=== PATIENT | female | born 1970 | race Two or more races ===

== ENCOUNTER 2020-07-31 08:40 | Emergency (ER) | payer MEDICAID, SELFPAY ==
[2020-07-31 09:38] VITALS: BP 131/92; PULSE 92; RESP 20; TEMP 36.6; O2SAT 96; BMI 26.6
--- NOTE | 2020-07-31 10:21 | ED.GENADULT ---
HPI - General Adult General Chief complaint: General Medical Stated complaint: facial pain Time Seen by Provider: 07/31/20 09:47 Source: patient Mode of arrival: ambulatory Limitations: no limitations History of Present Illness HPI narrative: 50 yo female here with sinus pain, headache, nasal congestion x 4 days Onset (ago): day(s) (4 days) Location: head Radiation: non-radiation Severity: mild Quality: constant Pain Consistency: constant Relieving factors: none Exacerbating factors: none Associated symptoms: fever/chills (subjective fevers, chills ) and headaches Treatments prior to arrival: none Related Data Previous Rx's Medication Instructions Recorded amoxicillin-pot clavulanate 1 tab PO BID 7 Days #14 tab 07/31/20 [Augmentin] cetirizine 10 mg PO DAILY #30 tab 07/31/20 Allergies Allergy/AdvReac Type Severity Reaction Status Date / Time egg [EGGS] Allergy Intermediate Rash Verified 07/31/20 10:04 ibuprofen [Ibuprofen] Allergy Unknown RASH Verified 07/31/20 10:04 naproxen [Naproxen] Allergy Unknown RASH Verified 07/31/20 10:04 tramadol [Tramadol] Allergy Unknown RASH Verified 07/31/20 10:04 Review of Systems Review of Systems: Yes all other systems are reviewed and are negative Constitutional: Constitutional: Reports chills, Reports fever(s) (subjective ), Reports headache(s) and Denies weakness Eyes: Eyes: Denies change in vision and Denies loss of vision ENT: Denies dizziness, Reports headache(s), Reports nasal congestion, Reports sinus pain and Reports sinus pressure Cardiovascular: Cardiovascular: Denies chest pain, Denies leg edema and Denies dyspnea Respiratory: Respiratory: Denies cough and Denies dyspnea Gastrointestinal: Gastrointestinal: Denies abdominal pain, Denies diarrhea, Denies nausea and Denies vomiting Genitourinary: Genitourinary: Reports no additional female genitourinary complaints Musculoskeletal: Musculoskeletal: Denies arthralgias, Denies joint swelling, Denies numbness and Denies tingling Integumentary/Breasts: Skin/Breast: Denies rash Neurologic: Reports Abnormal speech present, Denies dizziness, Reports headache(s), Denies focal weakness, Denies loss of vision, Denies numbness, Denies Other visual disturbances, Denies tingling and Denies weakness [facility] Past Medical History Attestation statement: The following information was validated with the patient. Source: obtained from family Medical History Kidney stones Migraine Social History Social History Alcohol intake: never Smoking Status: Never smoker Use of substances other than those prescribed or required for medical reasons: No Advance Directives: No Advance Directives Information Provided: No Physical Exam Vital Signs and I&O and Narrative: Vital Signs and I&O: Vital Signs Temp 98 F 07/31/20 09:38 Pulse 92 07/31/20 09:38 Resp 20 07/31/20 09:38 BP 131/92 H 07/31/20 09:38 Pulse Ox 96 07/31/20 09:38 Intake & Output 07/30/20 07/31/20 07/31/20 18:59 06:59 18:59 Weight 59.874 kg Body Mass Index 26.6 Const: General: cooperative, comfortable, no acute distress and well developed Orientation/consciousness: patient oriented x3 Limitations: no limitations HENMT: Head: Yes normal to inspection Ears: hearing grossly normal bilaterally, normal mastoids bilaterally, no periauricular adenopathy and TM abnormal (bilateral bulging) wth effusion; not erythematous General nose exam: Normal external nose present Face and sinus: No sinuses nontender (frontal and maxillary sinuses tender), Yes sinus tenderness and Yes other (bilateral nasal turbinate erythema) Mouth: Normal oral and palatal mucosa present Throat: Yes posterior oropharynx normal Eyes: General: appearance normal, both eyes and all related structures Pupils: Equal, round and reactive pupils present Neck: Neck: Yes normal visual inspection Lymphatic: lymphadenopathy noted Chest: Chest palpation & inspection: normal inspection of the chest Resp: Effort & Inspection: normal respiratory effort Auscultation: clear to auscultation bilaterally Cardio: Palpation: normal PMI Rate: regular rate Rhythm: regular rhythm Heart sounds: S1 normal heart sound present Peripheral pulses: Peripheral pulses 2+ throughout GI: Inspection: Yes normal to inspection Palpation (GI): Soft to palpation and nontender Auscultation: normal bowel sounds Back/Spine/Pelvis: Thoracic/Lumbar Spine: thoracic and lumbar spine normal to inspection Skin: General skin exam: no rashes or lesions noted Neuro: General: patient oriented x3 Cranial nerves: Yes Equal, round and reactive pupils present Cognition (Neuro): normal cognition Speech: Abnormal speech present Gait exam (Neuro): Normal gait present Motor exam (neuro): 5/5 motor strength present throughout Sensory Exam: Normal double simultaneous stimulation for sensation Extrem: General: Yes normal to inspection Medical Decision Making MDM Narrative Medical decision making narrative: Exam c/w with sinusitis. Will treat with augmentin x 7 days. Reviewed worrisome signs/symptoms with patient and when to return to ED. Comfortable with discharge home. Discharge Plan Discharge Clinical Impression: Sinusitis Qualifiers: Sinusitis location: maxillary Chronicity: acute Recurrence: non-recurrent Qualified Code(s): J01.00 - Acute maxillary sinusitis, unspecified Patient Disposition: Home, Self-Care Instructions: Sinusitis (ED) Additional Instructions: Warm, moist air as discussed Continue nasal spray Prescriptions: New amoxicillin-pot clavulanate [Augmentin] 875-125 mg tablet 1 tab PO BID 7 Days Qty: 14 RF: 0 cetirizine 10 mg tablet 10 mg PO DAILY Qty: 30 RF: 0 Referrals: [facility] [Primary Care Provider] - 5 days (if no better) Stand Alone Forms: Work/School Release Interventions: ED Discharge Assessment Last Done: 07/31/20 10:47 Discharge Date/Time: 07/31/20 10:49 Print Language: Hungarian
== END 2020-07-31 10:49 | disposition home or self-care (01) ==
PROVIDERS: Emergency Provider Internal Medicine
DX: J01.00 Acute maxillary sinusitis, unspecified (principal)
CPT/HCPCS: 99283; 99284

== ENCOUNTER → 2021-09-13 14:52 | Outpatient (BNVA) | payer MEDICAID, SELFPAY | PROVIDERS: PCP Internal Medicine; Visit Provider Orthopaedic Surgery | DX: M24.811 Other specific joint derangements of right shoulder, not elsewhere classified (principal); Z88.8 Allergy status to other drugs, medicaments and biological substances; Z88.6 Allergy status to analgesic agent; Z91.012 Allergy to eggs | CPT/HCPCS: 99202 ==

== ENCOUNTER 2021-10-29 16:13 | Outpatient (REF) | payer MEDICAID, SELFPAY ==
--- NOTE | ~2021-10-29 | MR_ITS ---
EXAMINATION: MR SHOULDER WITHOUT CONTRAST, RIGHT CLINICAL INFORMATION: Right shoulder pain down to arm. Finger numbness. Decreased range of motion. COMPARISON: Radiographs dated 02/05/2018. TECHNIQUE: MRI of the shoulder without contrast was performed on a high-field scanner. FINDINGS: ROTATOR CUFF: At the insertion of the junctional fibers of the supraspinatus and infraspinatus tendons, there is an insertional tear of the supraspinatus tendon and anterior fibers of the infraspinatus tendon measuring 1.2 cm AP. This tear involves the majority of the tendon thickness (1 cm, image 6/18 of series 5) with probable punctate focal disruption of both the articular and bursal laminae. The torn margin of the tendon is retracted by 5 mm. There is underlying cortical irregularity, marrow edema signal, and subcortical cystic change at the greater tuberosity. Subscapularis and teres minor are normal. No muscle atrophy or fatty infiltration. BICEPS: Normal. CORACOACROMIAL ARCH: The undersurface of the acromion is curved with small lateral subacromial spur. Small to moderate volume of fluid in the subacromial-subdeltoid bursa. Mild acromioclavicular osteoarthritis. LABRUM/CAPSULE: Mild fraying is noted at the glenoid labrum posterosuperiorly without a discrete tear. Joint capsule is normal. GLENOHUMERAL JOINT/MARROW: As noted above, there is subcortical cystic change and marrow edema at the greater tuberosity deep to the rotator cuff insertion. No fractures. Marrow signal is otherwise normal. Articular cartilage appears relatively well preserved at the glenohumeral joint. No significant joint effusion. MR/MR shoulder RT wo con IMPRESSION: 1. A 1.2 cm insertional tear at the junctional fibers of the supraspinatus and infraspinatus tendons with probable focal full-thickness perforation and minimal tendon retraction (5 mm). No muscle atrophy. 2. [id number] subacromial-subdeltoid bursitis. Small lateral subacromial spur and mild acromioclavicular osteoarthritis. 3. Glenohumeral joint and labrum are relatively well preserved.
== END 2021-10-29 16:14 | disposition home or self-care (01) ==
LOC: HO.MRI 16:13
PROVIDERS: Visit Provider Orthopaedic Surgery
DX: M24.811 Other specific joint derangements of right shoulder, not elsewhere classified (principal)
CPT/HCPCS: 73221

== ENCOUNTER → 2021-11-08 13:17 | Outpatient (BNVA) | payer MEDICAID, SELFPAY | PROVIDERS: PCP Internal Medicine; Visit Provider Orthopaedic Surgery | DX: M75.101 Unspecified rotator cuff tear or rupture of right shoulder, not specified as traumatic (principal) | CPT/HCPCS: 99212 ==

== ENCOUNTER → 2021-12-28 11:17 | Outpatient (BNVA) | payer MEDICAID, SELFPAY | PROVIDERS: Visit Provider Physician Assistant | DX: M75.101 Unspecified rotator cuff tear or rupture of right shoulder, not specified as traumatic (principal) | CPT/HCPCS: 99212 ==

== ENCOUNTER 2022-01-02 07:51 | Day surgery (SDC) | payer MEDICAID, SELFPAY ==
[2021-12-27 15:06] VITALS: BMI 28.0
[2022-01-02] VITALS (12 sets, daily range): BP systolic 106–126; BP diastolic 77–84; PULSE 75–107; RESP 11–19; TEMP 36.1–36.7; O2SAT 95–98
[2022-01-02] MEDS: Scopolamine 1.5 MG PATCH.TD.3 EAR-BEHIND (08:21)
--- NOTE | 2022-01-02 08:25 | P.CONAN_ITS ---
HPI - Anesthesia Eval Consult details Narrative: Right shoulder pain PMFSH Active Problems Active Problems: All Active Problems (Updated 12/27/21 @ 15:05 by Vonnie Mahmood RN) Internal derangement of right knee (Acute) Internal derangement of right shoulder (Acute) Rotator cuff tear, right (Acute) Past Medical History Medical History Anxiety COVID-19 vaccine series completed History of postoperative nausea and vomiting Kidney stones Migraine Family History Family history of problems with anesthesia: No Surgical History Surgical History Hx of cholecystectomy Hx of cystoscopy Hx of cystoscopy Hx of hemorrhoidectomy Hx of lithotripsy History of Problems with Anesthesia: No Social History Social History Are you a primary daycare teacher to a significant other at home: No Do you presently have visiting nurse or other home services: No Alcohol intake: never Patient Tobacco Use Status: Never used Tobacco Use of substances other than those prescribed or required for medical reasons: No Have you been hit, kicked, punched, or otherwise hurt by someone within the past year? If so, by whom?: No Are you DNR?: No Advance Directives: No Advance Directives Information Provided: Yes (brochure mailed) Advance Directives on File: No Recently lost weight without trying: No Eating poorly because of decreased appetite: No Nutrition Risks: No Nutritional Risk Patient : No FDLMP: 12/11/21 (irregular) : No Poor oral hygiene: No Meds Allergies Allergy/AdvReac Type Severity Reaction Status Date / Time egg [EGGS] Allergy Intermediate Rash Verified 12/28/21 11:31 ibuprofen [Ibuprofen] Allergy Intermediate RASH Verified 12/28/21 11:31 Influenza Virus Vaccines Allergy Intermediate Rash Verified 12/28/21 11:31 naproxen [Naproxen] Allergy Intermediate RASH Verified 12/28/21 11:31 tramadol [Tramadol] Allergy Intermediate RASH Verified 12/28/21 11:31 Active Medications: Current Medications Lactated Ringer's (Lr) 1,000 mls @ 50 mls/hr IVCONT .Q20H SUSSY Acetaminophen (Ofirmev) 1,000 mg in 100 mls @ 400 mls/hr IV PREOP ONE Stop: 01/02/22 08:37 Home Medications Medication Instructions Recorded Confirmed Last Taken Type amitriptyline 25 mg tablet 1 tab PO BEDTIME 12/27/21 12/27/21 Unknown History aspirin 81 mg tablet,delayed 1 tab PO DAILY 12/27/21 12/27/21 Unknown History release cholecalciferol (vitamin D3) 50 1 cap PO DAILY 12/27/21 12/27/21 Unknown History mcg (2,000 unit) capsule conjugated estrogens 0.625 mg/gram 1 g VAGINAL 2XW 12/27/21 12/27/21 Unknown History vaginal cream (Premarin) cyanocobalamin (vitamin B-12) 1 tab PO DAILY 12/27/21 12/27/21 Unknown History 2,000 mcg tablet,extended release cyclobenzaprine 5 mg tablet 1 tab PO DAILY PRN 12/27/21 12/27/21 Unknown History divalproex 500 mg tablet,delayed 1 tab PO BID 12/27/21 12/27/21 Unknown History release fluticasone propionate 50 2 spray INTRANASAL DAILY 12/27/21 12/27/21 Unknown History mcg/actuation nasal spray,suspension levocetirizine 5 mg tablet 1 tab PO QPM 12/27/21 12/27/21 Unknown History loratadine 10 mg tablet 1 tab PO DAILY PRN 12/27/21 12/27/21 Unknown History oxycodone-acetaminophen 5 mg-325 1 tab PO Q6H PRN 12/27/21 12/27/21 Unknown History mg tablet pantoprazole 20 mg tablet,delayed 1 tab PO DAILY 12/27/21 12/27/21 Unknown History release sumatriptan succinate 50 mg tablet 1 - 2 tab PO DAILY 12/27/21 12/27/21 Unknown History Exam Exam Date and Time: January 02, 2022 0825 Height,Weight and Vital Signs: Height 4 ft 11 in Weight 63.049 kg Last Vital Signs Temp 98.0 F 01/02/22 07:53 Pulse 91 01/02/22 07:53 Resp 16 01/02/22 07:53 BP 113/83 01/02/22 07:53 Pulse Ox 98 01/02/22 07:53 Airway Mallampati Class: II TM Dist: >3cm Neck ROM: Full Loose/Missing/Broken Teeth: No Heart: [id number] Lungs: cta b/l Assessment and Plan Assessment Anesthesia Assessment: Anesthesia Plan Discussed and Chart Reviewed Final Anesthetic Review Family History of Problems with Anesthesia: No History of Problems with Anesthesia: No NPO: Yes ASA Class: II Final Preanesthetic Review: No Changes in Pt Med Stat, Meds/Allgs Chart Reviewed, Consent Obtained/Reviewed and Anes Risks/Benef Reviewed Patient Risk: Intermediate Procedure Risk: Intermediate Assessment/Block/Sedation in SS: Assess/Block/Sedation-SS Anesthetic Plan Anesthetic Plan: GA, Regional Block and Agree w/ Assess. and Plan Disposition: Standard PACU
--- NOTE | 2022-01-02 09:18 | MHC.SHP ---
Pre-Procedural Eval Section A Date of Service: 01/02/22 The patient is an INPATIENT: No Changes since office visit: No Cold of Flu in the past 2 weeks, No New Medical Problems, No Changes in Medication and No Patient answered all questions The History & Physical has been completed within 30 days and I have reviewed it.: Yes Section B Chief Complaint: rotator tear Allergies: Allergies Allergy/AdvReac Type Severity Reaction Status Date / Time egg [EGGS] Allergy Intermediate Rash Verified 12/28/21 11:31 ibuprofen [Ibuprofen] Allergy Intermediate RASH Verified 12/28/21 11:31 Influenza Virus Vaccines Allergy Intermediate Rash Verified 12/28/21 11:31 naproxen [Naproxen] Allergy Intermediate RASH Verified 12/28/21 11:31 tramadol [Tramadol] Allergy Intermediate RASH Verified 12/28/21 11:31 Plan I have reviewed the history and physical and performed a pertinent physical examination on my patient. No changes have occurred unless specified.
--- NOTE | 2022-01-02 11:32 | P.BOP_ITS ---
Brief Operative Note Date of Service: 01/02/22 Pre-op diagnosis: right RTC tear Post-op diagnosis: same Procedure: Right rotator cuff repair Implants: [employer] Helacoil x 2 and Knotless anchor x2 Surgeon: Darryl Urrutia MD Anesthesia: GETA and regional Was an Sectionizer used for this Procedure?: Yes Sectionizer: Mayra Ware Estimated blood loss (mL): 15 IV fluids (mL): 1,000 Pathology: none sent Condition: stable Disposition: PACU
--- NOTE | 2022-01-02 11:37 | W.PM.OPN ---
Operative Note Operative Note Date of Service: 01/02/22 Narrative: Pre-op diagnosis: right RTC tear Post-op diagnosis: same Procedure: Right rotator cuff repair Implants: [employer] Helacoil x 2 and Knotless anchor x2 Surgeon: Darryl Urrutia MD Anesthesia: GETA and regional Was an Senior Developer used for this Procedure?: Yes Senior Developer: Mayra Ware Estimated blood loss (mL): 15 IV fluids (mL): 1,000 Pathology: none sent Condition: stable Disposition: PACU Procedure in detail: Patient was brought to the operating room and placed the the beach chair position. All bony prominences were well padded and the limb was prepped and draped in standard sterile fashion. A time out was called to identify proper site, proper procedure and proper surgeon. IV antibiotics per weight were administered. I began by making a posterolateral stab incision with a 15 blade. A blunt trochar was placed into the glenohumeral joint and I insufflated the joint with saline and a 30 degree arthroscope was placed. I established an outside- in anterior portal just distal to the biceps tendon. I then began my inspection of the glenohumeral joint. Cartilage surfaces were normal. Gutter was clean. Biceps/labral complex intact. Subscapularis intact. Full thickness undersurface tear of supraspinatus. I then removed the trochar and entered the subacromial space. A direct lateral portal was then established and I performed a bursectomy. The cuff was then examined.There was a crescentic full thickness tear of the entirety of the supraspinatus without retraction. I placed two medial row double loaded anchors adjacent to the humeral haed chondral surface and passed these throughout the cuff and , using a cross-bridge technique brought these to two lateral row knotless anchors. Prior to this I used a oswaldo to debride the bony bed to bleeding bone. I was extremely satisfied with the repair and performed a small subacromial decompression. Once I was satisfied with the repair final images were captured and I removed all instrumentation. Portals were closed with nylon. Patient was placed in an abduction sling, extubated and brought to the recovery room in stable condition. There were no known complications.
[2022-01-02] MEDS: fentaNYL citrate/PF 100 MCG/2 ML VIAL 50 MCG IVPUSH ×2 (11:54→12:11)
[2022-01-02] MEDS: oxyCODONE HCl Immed Release 5 MG TABLET 10 MG PO (11:54)
== END 2022-01-02 13:51 | disposition home or self-care (01) ==
PROVIDERS: Visit Provider Orthopaedic Surgery
PROC: (CPT 29827; principal; 2022-01-02 09:50)
DX: M75.101 Unspecified rotator cuff tear or rupture of right shoulder, not specified as traumatic (principal); F41.1 Generalized anxiety disorder; G43.909 Migraine, unspecified, not intractable, without status migrainosus; Z87.442 Personal history of urinary calculi; Z88.8 Allergy status to other drugs, medicaments and biological substances
CPT/HCPCS: 29827; 29826; C1713; J0131; J0171; J0690; J1100; J1200; J2250; J2405; J3010

== ENCOUNTER → 2022-01-07 09:48 | Outpatient (BNVA) | payer MEDICAID, SELFPAY | PROVIDERS: PCP Internal Medicine; Visit Provider Physician Assistant | DX: Z98.890 Other specified postprocedural states (principal) | CPT/HCPCS: 99212 ==

== ENCOUNTER → 2022-02-04 09:11 | Outpatient (BNVA) | payer MEDICAID, SELFPAY | PROVIDERS: PCP Internal Medicine; Visit Provider Physician Assistant | DX: Z47.89 Encounter for other orthopedic aftercare (principal); Z98.890 Other specified postprocedural states | CPT/HCPCS: 99212 ==

== ENCOUNTER 2022-02-14 08:22 | Outpatient (REF) | payer MEDICAID, SELFPAY ==
--- NOTE | ~2022-02-14 | XR_ITS ---
EXAMINATION: XR SHOULDER, RIGHT CLINICAL INFORMATION: Pain COMPARISON: Previous x-ray January 2018 TECHNIQUE: Three views of the right shoulder. FINDINGS: There are new surgical tacks or anchors in the humeral head. Bone alignment is normal. No fracture or dislocation is seen. The joint spaces are normal. Soft tissues are normal. XR/XR shoulder RT min 2V IMPRESSION: New postsurgical changes with tacks or anchors in the humeral head.
== END 2022-02-14 08:23 | disposition home or self-care (01) ==
LOC: HO.HOSX 08:22
PROVIDERS: Visit Provider Physician Assistant
DX: Z98.890 Other specified postprocedural states (principal)
CPT/HCPCS: 73030; 99212

== ENCOUNTER → 2022-03-04 12:47 | Outpatient (BNVA) | payer MEDICAID, SELFPAY | PROVIDERS: PCP Internal Medicine; Visit Provider Physician Assistant | DX: Z98.890 Other specified postprocedural states (principal) | CPT/HCPCS: 99212 ==

== ENCOUNTER 2022-05-02 15:00 | Outpatient (RCR) | payer MEDICAID, SELFPAY | END 2022-05-30 08:11 | disposition home or self-care (01) | LOC: HO.PT 15:00 | PROVIDERS: PCP Internal Medicine; Visit Provider Physician Assistant | DX: Z98.890 Other specified postprocedural states (principal) | CPT/HCPCS: 97014; 97110; 97112; 97140; 97161 ==

== ENCOUNTER → 2022-07-10 14:53 | Outpatient (REF) | payer MEDICAID, SELFPAY ==
--- NOTE | 2022-07-10 14:56 | CA_ITS ---
Transthoracic Echocardiogram Patient (Last, First, Middle): Camila Moreira, Gender: Female Date of : 1970 Age: 52 Procedure Date: 07/10/2022 Procedure Type: Transthoracic Echocardiogram Location: OP Height: 149.86 cm Weight: 61.24 kg BSA: 1.56 m2 Heart Rate: bpm BP: 120 / 80 mmHg Supplier Quality Specialist: IGOR Referring MD: Elo Frederick Community Engagement Representative: Kenneth Urbina MD Symptoms: R00.2 PALPITATIONS R07.89 CHEST PAIN Study Quality: Technically Difficult ECG Rhythm: Sinus Conclusions: - 1. Technically limited study 2. Normal LV systolic function with impaired relaxation filling pattern 3. Cardiac valves not well visualized with normal cardiac valvular Doppler Findings Left Ventricle Normal left ventricular size, thickness, and systolic function. The visually estimated ejection fraction is between 60-65%. Spectral Doppler is indicative of an impaired relaxation filling pattern. Right Ventricle The right ventricle was not well visualized. There is normal right ventricular systolic function. Atria The left atrium was not well visualized. Interatrial shunt cannot be excluded. The right atrium was not well visualized. Aortic Valve The aortic valve was not well visualized. There is no aortic valve stenosis. There is no aortic valve regurgitation. Mitral Valve Likely normal mitral valve structure and function. There is trace mitral valve regurgitation. There is no mitral valve stenosis. Pulmonic Valve The pulmonic valve was not well visualized. Tricuspid Valve The tricuspid valve was not well visualized. Tricuspid regurgitation envelope is inadequate for calculation of right ventricular systolic pressure. Great Vessels All visible segments of the aorta are normal in size. The pulmonary artery was not well visualized. Venous The inferior vena cava was not well visualized. Pericardium/Pleural The pericardium was not well visualized. Prior Study Comparison No prior study available for comparison. Recommendations, Care & Conclusions Recommend contrast in the future to improve endocardial definition. Measurements 2D Linear Measurements IVSd: 0.92 0.6-0.9/0.6-1.0 cm LVIDd: 3.61 3.9-5.3/4.2-5.9 cm LVIDd Index: 2.31 2.4-3.2/2.2-3.1 cm/m2 LVIDs: 2.56 2.0-3.6 cm LVPWd: 1.02 0.7-1.1 cm LA Diam: 3.10 2.7-3.8/3.0-4.0 cm LAIDs Index: 1.99 1.5-2.3 cm/m2 LV Mass: 128.67 67-162/88-224 g LV Mass Index: 82.48 43-95/49-115 g/m2 LVOT Diam: 1.80 3.0+(-)1.3 cm Mitral Valve MV Pk E: 0.46 MV PK A: 0.62 MV Decel Time: 194.00 E/A: 0.70 E'Lateral: 6.66 E'Medial: 6.66 E/E' Med: 7.00 E/E' Lat: 7.00 PHT: 57.00 MVA PHT: 3.86 Decel Mineral: 2.38 Aortic Valve AoV Pk Wesly: 1.16 AoV Mn Wesly: 0.85 AoV VTI: 0.24 AoV Pk Grad: 5.00 Aov Mn Grad: 3.00 ROCIO Cont.VTI: 1.64 LVOT LVOT Pk Wesly: 0.79 LVOT Mn Wesly: 0.55 LVOT VTI: 0.16 LVOT Pk Grad: 3.00 LVOT Mn Grad: 1.00 LVOT Diam: 1.80 LVOT Area: 2.54 Diastolic Function MV Pk E: 0.46 MV Pk A: 0.62 E/A: 0.70 E'Medial: 6.66 E/E' Med: 7.00 E' Laterial: 6.66 E/E' Lat: 7.00 Right Ventricle TAPSE (mm): 16.50 TVS' Wesly: 9.64 Tricuspid Valve RA Press: 3.00 Great Vessels Aorta Sinus of Valsalva: 3.00 2.0-3.5 cm Ao Asc: 2.50 2.1-3.4 cm Pulmonary Valve PV Pk Wesly: 0.62 Peak PV Grad: 2.00 Updated in Other Vendor System with Status of Final Kenneth Urbina MD electronically signed on 07/10/2022 6:00:55 PM with status of Final
== END ==
LOC: HO.CARD 14:53
PROVIDERS: Visit Provider Nurse Practitioner
DX: R07.89 Other chest pain (principal); R00.2 Palpitations
CPT/HCPCS: 93306

== ENCOUNTER → 2022-07-19 14:23 | Outpatient (BNVA) | payer MEDICAID, SELFPAY | PROVIDERS: PCP Internal Medicine; Visit Provider Physician Assistant | DX: Z98.890 Other specified postprocedural states (principal) | CPT/HCPCS: 99212 ==

== ENCOUNTER 2022-08-01 14:52 | Outpatient (REF) | payer MEDICAID, SELFPAY ==
--- NOTE | ~2022-08-01 | US_ITS ---
EXAMINATION: US RETROPERITONEAL LIMITED (RENAL ONLY) CLINICAL INFORMATION: Unspecified abdominal pain, history of nephrolithiasis. COMPARISON: Ultrasound retroperitoneal limited (renal only) 07/01/2017 and 11/22/2016. CT abdomen and pelvis without contrast 01/17/2017. X-ray abdomen KUB 11/13/2016. TECHNIQUE: Real-time imaging of the kidneys. FINDINGS: RIGHT KIDNEY: 10.2 x 4.8 x 4.1 cm (SAG x AP x TRV). The kidney is normal in size, contour, and echogenicity. Renal cortical thickness is normal. No focal parenchymal lesions or hydronephrosis. There is an echogenic nonobstructing midpole calculi measuring 0.5 x 0.3 x 0.6 cm. LEFT KIDNEY: 10.9 x 5.5 x 3.8 cm (SAG x AP x TRV). The kidney is normal in size, contour, and echogenicity. Renal cortical thickness is normal. No renal calculi or focal parenchymal lesions. There is mild hydronephrosis. BLADDER: Bilateral ureteral jets are demonstrated. US/US renal BI IMPRESSION: Nonobstructive echogenic calculi midpole right kidney. Mild left hydronephrosis. Bilateral ureteral jets are visualized in the bladder
== END 2022-08-01 14:53 | disposition home or self-care (01) ==
LOC: HO.US 14:52
PROVIDERS: PCP Emergency Medicine; Visit Provider Emergency Medicine
DX: R10.9 Unspecified abdominal pain (principal)
CPT/HCPCS: 76775

== ENCOUNTER 2022-08-02 21:07 | Emergency (ER) | payer MEDICAID, SELFPAY ==
--- NOTE | ~2022-08-02 | CT_ITS ---
EXAMINATION: CT ABDOMEN AND PELVIS WITH CONTRAST CLINICAL INFORMATION: Right upper quadrant pain COMPARISON: 01/17/2017 TECHNIQUE: Multidetector volumetric images were obtained from the superior aspect of the liver through the pubic symphysis following administration 85 mL of Omnipaque 350 intravenous contrast. Sagittal and coronal reformatted images were obtained on the technologist's workstation. Oral contrast: No
[2022-08-02 21:17] VITALS: BP 146/96; PULSE 120; RESP 18; TEMP 36.6; O2SAT 98; BMI 29.2
[2022-08-02 22:02] LABS: MANUAL DIFF FLAG NO
[2022-08-02 22:19] LABS: Basophils Percent Auto 0.3 % (0-2); Eosinophils Absolute Auto 0.1 X10*3/uL (0.0-0.4); Eosinophils Percent Auto 1.4 % (0-4); Hemoglobin 11.8 g/dl (12.0-16.0); Imm Gran Abs Auto 0.01 X10*3/uL (0.00-0.03); Imm Gran Pct Auto 0.1 % (0.0-0.4); Lymphocytes Absolute Auto 2.3 X10*3/uL (1.2-4.9); Lymphocytes Percent Auto 31.9 % (20-40); Mean Corpuscular HGB Conc 32.8 g/dl (31.0-35.0); Mean Corpuscular Hemoglobin 31.1 pg (27.0-33.0); Mean Corpuscular Volume 94.7 fL (80.0-98.0); Mean Platelet Volume 10.3 fL (9.4-12.3); Monocytes Absolute Auto 0.5 X10*3/uL (0.1-1.2); Monocytes Percent Auto 7.4 % (2-11); Neutrophils Absolute Auto 4.2 x10*3/uL (2.0-8.3); Neutrophils Percent Auto 58.9 % (45-73); Platelet Count 254 X10*3/uL (160-400); White Blood Count 7.2 X10*3/uL (4.8-10.8)
[2022-08-02 22:27] LABS: Troponin-I High Sensitivity < 3.5 ng/L (<3.5-17.0)
[2022-08-02 22:36] LABS: Alanine Aminotransferase 90 U/L (0-31); Albumin Level 4.6 g/dL (3.5-5.0); Alkaline Phosphatase 113 U/L (39-117); Anion Gap 15 (12-20); Aspartate Amino Transferase 53 U/L (5-31); Bilirubin Total 0.2 mg/dL (0.0-1.0); Blood Urea Nitrogen 11 mg/dL (9-16); Calcium 9.6 mg/dL (8.4-10.2); Carbon Dioxide 27 mmol/L (22-29); Chloride 104 mmol/L (96-108); Creatinine Clr Calc Pharmacy 59.6; Estimated Glomerular Filt Rate > 60; Glucose Random 102 mg/dL (60-115); Potassium 4.4 mmol/L (3.3-5.1); Sodium 142 mmol/L (135-145); Total Protein 8.1 g/dL (6.5-8.0)
--- NOTE | 2022-08-03 00:24 | ED.GENADULT ---
HPI - General Adult General Chief complaint: Allergic Reaction Stated complaint: was given med, having adverse effects Time Seen by Provider: 08/03/22 00:23 Source: patient Mode of arrival: ambulatory Limitations: no limitations History of Present Illness HPI narrative: Is a 52-year-old female presenting to the emergency department complaints of right upper quadrant pain x3 days, patient tells me she was evaluated at the [facility] where she was told that she might have kidney stones. She tells me that they did no imaging but just suspected that she had kidney stones. She tells me they did not check her urine there nor did they do any laboratory studies. Patient got discharged with tamsulosin which she reports she is having adverse effects 2 such as palpitations, intermittent headaches and chest discomfort. She tells me if she does not take the medication she is okay. Patient tells me that she is having constant right upper quadrant pain that fluctuates in intensity described as a sharp pain, unable to tell me what makes it better or worse. Denies any changes in urination. At this time tells me she is having palpitations however no shortness of breath. Denies fevers, chills, changes in bowel habits, changes in urination, weakness, vision changes, weakness. Related Data Home Medications Medication Instructions Recorded Confirmed amitriptyline 25 mg tablet 1 tab PO BEDTIME 12/27/21 12/27/21 aspirin 81 mg tablet,delayed 1 tab PO DAILY 12/27/21 12/27/21 release cholecalciferol (vitamin D3) 50 1 cap PO DAILY 12/27/21 12/27/21 mcg (2,000 unit) capsule conjugated estrogens 0.625 mg/gram 1 g vaginal 2XW 12/27/21 12/27/21 vaginal cream (Premarin) cyanocobalamin (vitamin B-12) 1 tab PO DAILY 12/27/21 12/27/21 2,000 mcg tablet,extended release cyclobenzaprine 5 mg tablet 1 tab PO DAILY PRN Muscle Spasm 12/27/21 12/27/21 divalproex 500 mg tablet,delayed 1 tab PO BID 12/27/21 12/27/21 release fluticasone propionate 50 2 spray intranasal DAILY 12/27/21 12/27/21 mcg/actuation nasal spray,suspension levocetirizine 5 mg tablet 1 tab PO QPM 12/27/21 12/27/21 loratadine 10 mg tablet 1 tab PO DAILY PRN congestion 12/27/21 12/27/21 oxycodone-acetaminophen 5 mg-325 1 tab PO Q6H PRN Pain 12/27/21 12/27/21 mg tablet pantoprazole 20 mg tablet,delayed 1 tab PO DAILY 12/27/21 12/27/21 release sumatriptan succinate 50 mg tablet 1 - 2 tab PO DAILY migraine 12/27/21 12/27/21 Previous Rx's Medication Instructions Recorded scopolamine base 1 mg over 3 days 1 patch transdermal Q72H PRN 12/31/21 transdermal patch (Transderm-Scop) nausea and vomiting #4 ea oxycodone 10 mg tablet,crush 10 mg PO Q12H pain 3 days #6 tabs 01/02/22 resistant,extended release 12 hr (OxyContin) oxycodone-acetaminophen 5 mg-325 1 tab PO Q8H PRN pain (scale score 01/24/22 mg tablet (Percocet) 4-6) 7 days #21 tabs lidocaine 5 % topical patch 2 patch topical DAILY #30 patches 07/30/22 (Lidoderm) Allergies Allergy/AdvReac Type Severity Reaction Status Date / Time egg [EGGS] Allergy Intermediate Rash Verified 07/19/22 14:42 ibuprofen [Ibuprofen] Allergy Intermediate RASH Verified 07/19/22 14:42 Influenza Virus Vaccines Allergy Intermediate Rash Verified 07/19/22 14:42 naproxen [Naproxen] Allergy Intermediate RASH Verified 07/19/22 14:42 tramadol [Tramadol] Allergy Intermediate RASH Verified 07/19/22 14:42 Review of Systems Review of Systems: Constitutional : No Weight loss, No Fever, No Chills, No Fatigue, No Malaise ENT/Mouth : No sore throat, No Rhinorrhea Eyes: No Eye Pain, No Swelling, No Redness Cardiovascular : No Chest Pain, No SOB, No Dyspnea on Exertion, No Orthopnea, No Edema, No Palpitations Respiratory : No Cough, No Sputum, No Wheezing Gastrointestinal : No Nausea, No Vomiting, No Diarrhea, No Constipation, No abdominal Pain, No Hematochezia, No Melena Genitourinary : No Dysuria, No Urinary Frequency, No Hematuria, Musculoskeletal : No joint pain, No Myalgias, No Joint Swelling Skin : No Skin Lesions, No rash Neuro : No Weakness, No Numbness, No Dizziness, No Headache Psych : No Anxiety/Panic, No Depression All other systems reviewed and are negative Yes all other systems are reviewed and are negative [facility] Past Medical History Attestation statement: The following information was validated with the patient. Source: old records reviewed and nursing notes reviewed Medical History Anxiety COVID-19 vaccine series completed History of postoperative nausea and vomiting Kidney stones Migraine Surgical History Hx of cholecystectomy Hx of cystoscopy Hx of cystoscopy Hx of hemorrhoidectomy Hx of lithotripsy Social History Social History Are you a primary healthcare or medical to a significant other at home: No Do you presently have visiting nurse or other home services: No Alcohol intake: never Patient Tobacco Use Status: Never used Tobacco Advance Directives: No Advance Directives Information Provided: No Physical Exam ED Vital Signs: Vital Signs - 24 hr 08/02/22 21:17 Temperature 97.8 F Pulse Rate 120 H Respiratory Rate 18 Blood Pressure 146/96 H Pulse Oximetry 98 Oxygen Delivery Method Room Air BMI result Body Mass Index 29.2 Patient noted to be slightly tachycardic however appears anxious Appearance: Alert.? Oriented X3.? No acute distress.? Head: Normocephalic, atraumatic, no step-offs or deformities Eyes: Pupils equal, round and reactive to light.? Extraocular movements intact CVS: Normal heart rate and rhythm.? Pulses normal.? Respiratory: No respiratory distress.? Breath sounds normal.? Abdomen: Soft and + tenderness to RUQ + BS.? Skin: Skin warm and dry.? Normal skin color.? Normal skin turgor.? Extremities: No lower extremity edema.? No calf ttp, negative Phil bilaterally. 5/5 strength to bilateral upper and lower extremities Back: No midline tenderness, no C-spine tenderness, full range of motion, no CVA tenderness bilaterally Neuro: Oriented X 3.? No motor deficit.? No sensory deficit. CN 2-12 intact . Normal palqiq-xi-yehx, lxbi-dn-[id number], steady tandem gait with normal coordination. Course Reevaluation(s) Reevaluation #1: CBC appears to be at patient's baseline, chemistry with no acute findings, troponin negative, EKG nonischemic unlikely ACS. Time: 00:25 Reevaluation #2: UA clean. Pending CT of the abdomen and pelvis, chest x-ray, re-evaluation. Sign out to Dr. Keys. Time: 01:30 Medical Decision Making MDM Narrative Medical decision making narrative: 0025 52-year-old female presents to the emergency department complaints of right upper quadrant and with concerns of adverse effects to tamsulosin. Physical examination with right upper quadrant tenderness, normoactive bowel signs, no signs of peritonitis. Fast rate regular rhythm likely sinus tachycardia, lungs clear, neuro exam nonfocal, cerebellar function intact. Vital signs stable however patient is slightly tachycardic she does tell me that this all making her very anxious and appears anxious upon exam. Based off patient history and physical examination low suspicion for ACS, PE. Concerns for possible cholecystitis or cholelithiasis. Other differentials include nephrolithiasis, or musculoskeletal pain. Neuro nonfocal, cerebellar intact, unlikely ICH, stroke, posterior infarct. Plan at this time is basic labs, urine CT of the abdomen and pelvis. Medical Records Medical records reviewed: Yes I reviewed the patient's medical records. Lab Data Lab results reviewed: Yes I reviewed the patient's lab results. Result diagrams: 08/02/22 21:43 08/02/22 21:43 Labs: Lab Results 08/02/22 08/02/22 08/02/22 Range/Units 21:43 21:43 21:43 WBC 7.2 (4.8-10.8) X10*3/uL RBC 3.80 L (4.20-5.50) X10*6/uL Hgb 11.8 L (12.0-16.0) g/dl Hct 36.0 L (37.0-47.0) % MCV 94.7 (80.0-98.0) fL MCH 31.1 (27.0-33.0) pg MCHC 32.8 (31.0-35.0) g/dl RDW 12.0 (11.0-16.0) % Plt Count 254 (160-400) X10*3/uL MPV 10.3 (9.4-12.3) fL Immature Gran % (Auto) 0.1 (0.0-0.4) % Neut % (Auto) 58.9 (45-73) % Lymph % (Auto) 31.9 (20-40) % [place] % (Auto) 7.4 (2-11) % Eos % (Auto) 1.4 (0-4) % Baso % (Auto) 0.3 (0-2) % Lymph # (Auto) 2.3 (1.2-4.9) X10*3/uL [place] # (Auto) 0.5 (0.1-1.2) X10*3/uL Eos # (Auto) 0.1 (0.0-0.4) X10*3/uL Baso # (Auto) 0.0 (0.0-0.2) X10*3/uL Abs Immat Gran (auto) 0.01 (0.00-0.03) X10*3/uL Absolute Neuts (auto) 4.2 (2.0-8.3) x10*3/uL Absolute Nucleated RBC 0.000 (0.0-0.012) X10*3/uL Nucleated RBC % (auto) 0.0 (0.0-0.2) /100WBC Sodium 142 (135-145) mmol/L Potassium 4.4 (3.3-5.1) mmol/L Chloride 104 (96-108) mmol/L Carbon Dioxide 27 (22-29) mmol/L Anion Gap 15 (12-20) BUN 11 (9-16) mg/dL Creatinine 0.93 (0.5-1.4) mg/dL Estim Creat Clear Calc 59.6 Estimated GFR > 60 Random Glucose 102 (60-115) mg/dL Calcium 9.6 (8.4-10.2) mg/dL Total Bilirubin 0.2 (0.0-1.0) mg/dL AST 53 H (5-31) U/L ALT 90 H (0-31) U/L Alkaline Phosphatase 113 (39-117) U/L Troponin I High Sens < 3.5 (<3.5-17.0) ng/L Total Protein 8.1 H (6.5-8.0) g/dL Albumin 4.6 (3.5-5.0) g/dL Urine Color Urine Appearance Urine pH (5.0-9.0) Ur Specific Lincoln (1.005-1.025) Urine Protein (Neg-Trace) mg/dL Urine Glucose (UA) (Negative) mg/dL Urine Ketones (Negative) mg/dL Urine Blood (Negative) Urine Nitrite (Negative) Ur Leukocyte Esterase (Negative) 08/03/22 Range/Units 01:08 WBC (4.8-10.8) X10*3/uL RBC (4.20-5.50) X10*6/uL Hgb (12.0-16.0) g/dl Hct (37.0-47.0) % MCV (80.0-98.0) fL MCH (27.0-33.0) pg MCHC (31.0-35.0) g/dl RDW (11.0-16.0) % Plt Count (160-400) X10*3/uL MPV (9.4-12.3) fL Immature Gran % (Auto) (0.0-0.4) % Neut % (Auto) (45-73) % Lymph % (Auto) (20-40) % Oxford % (Auto) (2-11) % Eos % (Auto) (0-4) % Baso % (Auto) (0-2) % Lymph # (Auto) (1.2-4.9) X10*3/uL Oxford # (Auto) (0.1-1.2) X10*3/uL Eos # (Auto) (0.0-0.4) X10*3/uL Baso # (Auto) (0.0-0.2) X10*3/uL Abs Immat Gran (auto) (0.00-0.03) X10*3/uL Absolute Neuts (auto) (2.0-8.3) x10*3/uL Absolute Nucleated RBC (0.0-0.012) X10*3/uL Nucleated RBC % (auto) (0.0-0.2) /100WBC Sodium (135-145) mmol/L Potassium (3.3-5.1) mmol/L Chloride (96-108) mmol/L Carbon Dioxide (22-29) mmol/L Anion Gap (12-20) BUN (9-16) mg/dL Creatinine (0.5-1.4) mg/dL Estim Creat Clear Calc Estimated GFR Random Glucose (60-115) mg/dL Calcium (8.4-10.2) mg/dL Total Bilirubin (0.0-1.0) mg/dL AST (5-31) U/L ALT (0-31) U/L Alkaline Phosphatase (39-117) U/L Troponin I High Sens (<3.5-17.0) ng/L Total Protein (6.5-8.0) g/dL Albumin (3.5-5.0) g/dL Urine Color Yellow Urine Appearance Clear Urine pH 7.5 (5.0-9.0) Ur Specific Lincoln 1.010 (1.005-1.025) Urine Protein Negative (Neg-Trace) mg/dL Urine Glucose (UA) Negative (Negative) mg/dL Urine Ketones Negative (Negative) mg/dL Urine Blood Negative (Negative) Urine Nitrite Negative (Negative) Ur Leukocyte Esterase Trace H (Negative) ECG Data Attestation: I personally reviewed and interpreted this ECG as follows: Prior ECG tracings: available for review Interpretation: Ventricular rate of 113, [place] normal, QRS normal, QT/QTC normal. EKG with sinus tachycardia and right axis deviation. No significant changes when compared to EKG from January 2015. Critical Care Time Critical Care Time Critical Care Time: No Discharge Plan Discharge Clinical Impression: Abdominal pain, RUQ, Palpitations Patient Disposition: Still a Patient Instructions: Heart Palpitations (ED), Abdominal Pain (ED) Additional Instructions: Take your medications as prescribed. If you were prescribed antibiotics today, it is important that you take your medication to their entirety, do not skip any doses, do not finish them early. Follow-up with your primary care provider this week. Please follow-up with cardiology of palpitations continue, information below you may require a Holter monitor for further evaluation. Return to the emergency department with new or worsening symptoms. Such as fevers, chills, chest pain, shortness of breath, nausea, vomiting, dizziness, headache, vision changes, lethargy In case of emergency call 911 Please stop taking Flomax as it is causing Prescriptions: No Action oxycodone-acetaminophen [Percocet] 5-325 mg tablet 1 tab PO Q8H PRN (Reason: pain (scale score 4-6)) 7 Days Qty: 21 0RF lidocaine [Lidoderm] 5 % adhesive patch,medicated 2 patch topical DAILY Qty: 30 0RF sumatriptan succinate 50 mg tablet 1 - 2 tab PO DAILY divalproex 500 mg tablet,delayed release (DR/EC) 1 tab PO BID aspirin 81 mg tablet,delayed release (DR/EC) 1 tab PO DAILY pantoprazole 20 mg tablet,delayed release (DR/EC) 1 tab PO DAILY oxycodone-acetaminophen 5-325 mg tablet 1 tab PO Q6H PRN (Reason: Pain) amitriptyline 25 mg tablet 1 tab PO BEDTIME Premarin 0.625 mg/gram cream 1 g vaginal 2XW cyanocobalamin (vitamin B-12) 2,000 mcg tablet extended release 1 tab PO DAILY fluticasone propionate 50 mcg/actuation spray,suspension 2 spray intranasal DAILY loratadine 10 mg tablet 1 tab PO DAILY PRN (Reason: congestion) cyclobenzaprine 5 mg tablet 1 tab PO DAILY PRN (Reason: Muscle Spasm) levocetirizine 5 mg tablet 1 tab PO QPM cholecalciferol (vitamin D3) 50 mcg (2,000 unit) capsule 1 cap PO DAILY oxycodone [OxyContin] 10 mg tablet,oral only,ext.rel.12 hr 10 mg PO Q12H 3 Days Qty: 6 0RF scopolamine base [Transderm-Scop] 1 mg over 3 days patch 3 day 1 patch transdermal Q72H PRN (Reason: nausea and vomiting) Qty: 4 0RF Referrals: [facility] [Primary Care Provider] - 2 days Kenneth Urbina MD [Physician] - 2 weeks Stand Alone Forms: Work/School Release
[2022-08-03 01:19] LABS: Appearance Urine Clear; Color Urine Yellow; Glucose Urine UA Negative (Negative); Leukocyte Esterase Urine Trace (Negative); Nitrite Urine Negative (Negative); PH 7.5 (5.0-9.0); UMIC TRIGGER UACC YES; Urine Blood Negative (Negative); Urine Ketones Negative (Negative); Urine Protein Negative (Neg-Trace)
[2022-08-03 01:29] LABS: Bacteria Urine None Seen (None Seen); Hyaline Casts Urine 0-2 /LPF (0-2); WBC Urine 0-5 /HPF (0-5)
[2022-08-03] MEDS: iohexoL 350 MG/ML 100 ML INFUS..BTL IV (01:29)
[2022-08-03 01:40] VITALS: BP 131/68; PULSE 75; RESP 18; O2SAT 96
[2022-08-03] MEDS: Acetaminophen 325 MG TABLET 975 MG PO (02:07)
[2022-08-03] MEDS: predniSONE 20 MG TABLET 60 MG PO (03:20)
[2022-08-03 03:25] VITALS: BP 128/74; PULSE 70; RESP 16; O2SAT 98
== END 2022-08-03 03:26 | disposition home or self-care (01) ==
PROVIDERS: Emergency Medicine; Physician Assistant; Emergency Provider Student in an Organized Health Care Education/Training Program
DX: R00.2 Palpitations (principal); R10.11 Right upper quadrant pain; R00.0 Tachycardia, unspecified; F41.9 Anxiety disorder, unspecified; Z79.899 Other long term (current) drug therapy
CPT/HCPCS: 36415; 71045; 74177; 80053; 81001; 84484; 85025; 93005; 99284; 99285; Q9967

== ENCOUNTER 2023-04-18 13:12 | Outpatient (REF) | payer MEDICAID, SELFPAY | END 2023-04-18 13:13 | disposition home or self-care (01) | LOC: HO.MAMMO 13:12 | PROVIDERS: PCP Registered Nurse; Visit Provider Registered Nurse | DX: Z13.89 Encounter for screening for other disorder (principal) ==

== ENCOUNTER 2023-05-29 11:17 | Outpatient (REF) | payer MEDICAID, SELFPAY ==
[2023-05-29 14:17] LABS: Alanine Aminotransferase 47 U/L (0-31); Albumin Level 4.4 g/dL (3.5-5.0); Alkaline Phosphatase 97 U/L (39-117); Anion Gap 16 (12-20); Aspartate Amino Transferase 29 U/L (5-31); Bilirubin Total 0.6 mg/dL (0.0-1.0); Blood Urea Nitrogen 12 mg/dL (9-16); Calcium 9.7 mg/dL (8.4-10.2); Carbon Dioxide 22 mmol/L (22-29); Chloride 107 mmol/L (96-108); Cholesterol 167 mg/dL; Estimated Glomerular Filt Rate > 60; Glucose Random 101 mg/dL (60-115); HDL Cholesterol 53 mg/dL; LDL Cholesterol Calculated 98 mg/dl; Potassium 4.7 mmol/L (3.3-5.1); Sodium 140 mmol/L (135-145); Total Protein 7.9 g/dL (6.5-8.0); Triglycerides 80 mg/dL
[2023-05-29 14:47] LABS: Valproate 12.5 mcg/mL (50.0-100.0)
[2023-05-30 05:23] LABS: HBS Num1 38.43 mIU/mL (0-7.99); HBc Num1 0.11 S/CO (0.00-0.79); HBsAGNum1 0.36 S/CO (0.00-0.99); HIV AB/AG Nonreactive (Nonreactive); HIV Num 1 0.07 S/CO (0.00-0.99); Hepatitis A Antibody IgM 0.18 Index (0-0.79); Hepatitis B Core Antibody Nonreactive (Nonreactive); Hepatitis B Surface Antigen Negative (Negative); ~HepC Num1 0.08 S/CO (0.00-0.79); ~Hepatitis A Antibody IgM Nonreactive (Nonreactive); ~Hepatitis B Surface Antibody REACTIVE (Nonreactive); ~Hepatitis C Antibody Nonreactive (Nonreactive)
== END 2023-05-29 11:18 | disposition home or self-care (01) ==
LOC: HO.HHCL 11:17
PROVIDERS: Visit Provider Registered Nurse
DX: Z00.00 Encounter for general adult medical examination without abnormal findings (principal); Z11.4 Encounter for screening for human immunodeficiency virus [HIV]; I25.10 Atherosclerotic heart disease of native coronary artery without angina pectoris; G43.909 Migraine, unspecified, not intractable, without status migrainosus
CPT/HCPCS: 36415; 80053; 80061; 80164; 86704; 86706; 86709; 86803; 87340; 87389

== ENCOUNTER 2023-08-20 16:13 | Outpatient (REF) | payer MEDICAID, SELFPAY ==
[2023-08-20 17:59] LABS: TSH reflex Free T4 2.57 uIU/mL (0.32-4.0)
== END 2023-08-20 16:14 | disposition home or self-care (01) ==
LOC: HO.HHCL 16:13
PROVIDERS: Visit Provider Registered Nurse
DX: H53.8 Other visual disturbances (principal)
CPT/HCPCS: 36415; 84443

== ENCOUNTER 2023-11-06 13:47 | Outpatient (REF) | payer MEDICAID, SELFPAY ==
--- NOTE | ~2023-11-06 | US_ITS ---
EXAMINATION: US DIAGNOSTIC ULTRASOUND BREAST, BILATERAL CLINICAL INFORMATION: 53-year-old female with new implants bilaterally 04/2023, complaining of periareolar pain bilaterally. Patient cannot have mammogram within 1 year of receiving new implants COMPARISON: All recent prior imaging done at [facility]. Left breast ultrasound and mammography 05/09/2023, mammography 11/15/2021, TECHNIQUE: Ultrasound both breasts is performed with real-time crowe scale imaging and color Doppler. Attention was given to the periareolar regions in the regions of pain. FINDINGS: RIGHT BREAST: In the 10-11 o'clock periareolar region there is a fatty mixed echogenicity oval mass measuring 0.9 x 0.9 x 1.0 cm, with posterior acoustic shadowing, and no internal color Doppler flow. Borders appear circumscribed. This has a fairly classic appearance of fat necrosis. No additional right breast abnormalities seen in the periareolar region. LEFT BREAST: In the periareolar region of the left breast, spanning the 1-2 o'clock axis, there are 2 discrete abutting edge shadowing masses which are echogenic, with central good through transmission, and no internal color Doppler flow present. These also have fairly classic appearance of 2 foci of abutting fat necrosis. The larger measures 1.1 x 1.0 x 1.4 cm, and the smaller abutting measures 0.7 x 0.6 x 0.6 cm. (Contrast to prior study at [facility] left breast ultrasound 04/09/2023, wire irregular kidney-shaped mass measured up to 3.3 x 2.0 x 1.5 cm). This also have the appearance of fat necrosis and has undergone significant involution and evolution. There are no additional foci of abnormality in the periareolar left breast. US/US breast BI limited mamm only IMPRESSION: Periareolar foci in both breasts have fairly classic appearance of evolving fat necrosis, as described above. On the left, areas are significantly smaller than previously 04/09/2023, reflecting expected evolution and involution of fat necrosis. No suspicious abnormalities are noted in either breast. ASSESSMENT: BI-RADS 2: Benign RECOMMENDATION: Routine annual mammography screening. This patient's information was entered into a reminder system with a target due date for their next mammogram.
== END 2023-11-06 13:48 | disposition home or self-care (01) ==
LOC: HO.MAMMO 13:47
PROVIDERS: PCP Registered Nurse; Visit Provider Registered Nurse
DX: T85.848A Pain due to other internal prosthetic devices, implants and grafts, initial encounter (principal); N64.4 Mastodynia
CPT/HCPCS: 76642

== ENCOUNTER → 2023-11-06 14:30 | Outpatient (BNV) | payer MEDICAID, SELFPAY | PROVIDERS: PCP Registered Nurse; Visit Provider Radiology Diagnostic Radiology | DX: N64.4 Mastodynia (principal) | CPT/HCPCS: 76642 ==

== ENCOUNTER 2023-12-11 14:34 | Outpatient (REF) | payer MEDICAID, SELFPAY ==
--- NOTE | ~2023-12-11 | MR_ITS ---
EXAMINATION: MR BREAST WITHOUT AND WITH CONTRAST, BILATERAL CLINICAL INFORMATION: Abnormal clinical breast exam. Breast pain. Previous implant placement. COMPARISON: None available. Mammography (nondiagnostic monitor review): 04/09/2023. TECHNIQUE: A 1.5 T system and a dedicated breast coil. T1-weighted sequences without fat-saturation were obtained prior to the administration of contrast. Fat-saturated T1 and T2-weighted sequences were also acquired. The patient received 6.5 mL of IV gadolinium-based contrast, Gadavist. Multiple sequential dynamic T1-weighted sequences were obtained through both breasts with fat-saturation. Subtracted images were reviewed. CAD postprocessing with 3-D reconstructions, maximum intensity projections and kinetic analysis was performed by the interpreting radiologist at an independent workstation and reviewed as a portion of this exam. FINDINGS: Amount of Remaining Fibroglandular Signal: There are scattered areas of fibroglandular tissue (ACR BI-RADS breast composition category B).* Background Parenchymal Enhancement: Moderate. Symmetry of Background Enhancement: Symmetric. RIGHT BREAST: There are irregular areas of enhancement scattered throughout the right breast. The larger areas in the superficial upper outer breast are hyperintense without fat saturation and demonstrates peripheral enhancement. There are multiple additional areas of nonmass enhancement. Masses: There are no other suspicious enhancing masses. Non-mass Enhancement: There are multiple nonspecific areas of nonmass enhancement. Focus: There are some nonspecific enhancing foci. Non-enhancing Findings: Associated findings: There is an intact retropectoral implant. No surrounding collection. Kinetic Curve Assessment: Initial Phase: There are scattered areas of color signal. Delayed Phase: There are no areas of washout kinetics. LEFT BREAST: There are irregular areas of enhancement scattered throughout the left breast. The larger areas in the superficial upper left breast have internal fat signal which suppresses and peripheral enhancement. There are multiple additional areas of nonspecific nonmass enhancement. Masses: There are no other suspicious enhancing masses. Non-mass Enhancement: There are multiple nonspecific areas of nonmass enhancement. Focus: There are nonspecific enhancing foci. Non-enhancing Findings: Associated Findings: There is an intact retropectoral implant. No surrounding collection. Kinetic Curve Assessment: Initial Phase: There are areas of color signal. Delayed Phase: There are no areas of washout kinetics. The axillary lymph nodes are morphologically normal. No suspicious internal mammary lymph nodes are seen. No suspicious abnormality in the visualized portions of chest or abdomen. MR/MR breast BI wo/w con IMPRESSION: There are multiple areas of nonmass enhancement. Some have the typical features of fat necrosis. However, some areas of nonmass enhancement are consistent with but not specific for postoperative change. The patient should be managed on the basis of the clinical breast exam. If there are no suspicious findings on clinical breast exam, recommend follow-up bilateral MRI in 6 months. ASSESSMENT: Right Breast: ACR BI-RADS 3: Probably benign finding - short-interval follow up. Left Breast: ACR BI-RADS 3: Probably benign finding - short-interval follow up. RECOMMENDATIONS: The patient should be managed on the basis of the clinical breast exam. If no intervention is undertaken, recommend bilateral follow-up MRI in 6 months.
[2023-12-11] MEDS: gadobutroL 7.5 ML VIAL IVPUSH (15:54)
== END 2023-12-11 14:35 | disposition home or self-care (01) ==
LOC: HO.MRI 14:34
PROVIDERS: PCP Registered Nurse; Visit Provider Registered Nurse
DX: T85.848A Pain due to other internal prosthetic devices, implants and grafts, initial encounter (principal); X58.XXXA Exposure to other specified factors, initial encounter; Y93.9 Activity, unspecified; Y92.9 Unspecified place or not applicable; Y99.9 Unspecified external cause status; Z98.82 Breast implant status
CPT/HCPCS: 77049; A9585

== ENCOUNTER 2024-07-21 11:34 | Outpatient (REF) | payer MEDICAID, SELFPAY ==
[2024-07-21 14:37] LABS: Alanine Aminotransferase 45 U/L (0-31); Albumin Level 4.7 g/dL (3.5-5.0); Alkaline Phosphatase 98 U/L (39-117); Anion Gap 17 (12-20); Aspartate Amino Transferase 29 U/L (5-31); Bilirubin Total 0.6 mg/dL (0.0-1.0); Blood Urea Nitrogen 13 mg/dL (9-16); C Reactive Protein 0.94 mg/dL (< or = 0.50); Calcium 10.1 mg/dL (8.4-10.2); Carbon Dioxide 24 mmol/L (22-29); Chloride 104 mmol/L (96-108); Cholesterol 215 mg/dL (<200); Estimated Glomerular Filt Rate > 60; Glucose Random 103 mg/dL (60-115); HDL Cholesterol 58 mg/dL (>40); LDL Cholesterol Calculated 126 mg/dL (<100); Potassium 4.1 mmol/L (3.3-5.1); Sodium 141 mmol/L (135-145); TSH reflex Free T4 3.15 uIU/mL (0.32-4.0); Total Protein 8.4 g/dL (6.5-8.0); Triglycerides 155 mg/dL (<150)
[2024-07-21 19:01] LABS: Erythrocyte Sedimentation Rate 14 MM/HR (0-20)
== END 2024-07-21 11:35 | disposition home or self-care (01) ==
LOC: HO.HHCL 11:34
PROVIDERS: Visit Provider Registered Nurse
DX: Z00.00 Encounter for general adult medical examination without abnormal findings (principal); G45.3 Amaurosis fugax; L80 Vitiligo
CPT/HCPCS: 36415; 80053; 80061; 84443; 85652; 86140

== ENCOUNTER 2024-08-19 11:06 | Outpatient (REF) | payer OTHER, SELFPAY ==
--- NOTE | ~2024-08-19 | MR_ITS ---
EXAMINATION: MR BREAST WITHOUT AND WITH CONTRAST, BILATERAL CLINICAL INFORMATION: 54-year-old female for close interval follow-up from prior MRI, status post implant placement with question of scarring and fat necrosis. COMPARISON: 12/11/2023 TECHNIQUE: Imaging was performed with a dedicated breast coil. Prior to the administration of contrast, bilateral axial T1 and bilateral axial T2 weighted sequences were obtained. After the uneventful administration of 5 mL of Gadavist, dynamic contrast-enhanced VIBRANT series through the breasts in the axial plane were performed. Subtracted images were performed and reviewed. A delayed sagittal sequence through both breasts was acquired. Additionally, CAD post-processing, including maximum intensity projections, 3-D reconstructions and kinetic analysis, were performed an independent workstation and reviewed by the interpreting radiologist is a portion of this exam. FINDINGS: The patient's fibroglandular tissue demonstrates mild background enhancement. LEFT BREAST: There are multiple oval T2 dark masses in the anterior aspect of the breast corresponding to areas of lipid cysts or fat necrosis on mammography. Previously described irregular areas of enhancement in the lateral and medial aspects of the breasts are consistent with scarring from prior implant placement. These are less pronounced than on the prior examination. These are consistent with postsurgical scarring. There are no areas of mass or nonmass enhancement suspicious of malignancy. There is an intact retropectoral silicone implant. There is no evidence of intracapsular or extracapsular rupture or free silicone. There are no additional findings on T2-weighted imaging or kinetic curve analysis. RIGHT BREAST: Similar to the contralateral breast, there are T2 dark mass-like areas in the retroareolar position consistent with fat necrosis. Linear areas of enhancement are again noted in the medial and lateral aspect of the breast consistent with postsurgical scarring. There are no areas of mass or nonmass enhancement suspicious of malignancy. There are bilateral retropectoral implants without evidence of intracapsular or extracapsular rupture or free silicone. There are no additional findings on T2-weighted imaging or kinetic curve analysis. There is no suspicious internal mammary chain or axillary adenopathy. Limited views of the chest and abdomen are unremarkable. MR/MR breast BI wo/w con IMPRESSION: Stable postsurgical changes bilaterally. No findings suspicious of malignancy in either breast. Intact retropectoral silicone implants. ASSESSMENT: LEFT BREAST: BI-RADS 2, benign. RIGHT BREAST: BI-RADS 2, benign. RECOMMENDATIONS: Clinical follow-up. MRI as per silicone implant FDA protocol. Electronically signed by: Riley Yang MD 10/04/2024 10:01 AM JOANN SANCHEZ
[2024-08-19] MEDS: gadobutroL 7.5 ML VIAL IVPUSH (12:15)
== END 2024-08-19 11:07 | disposition home or self-care (01) ==
LOC: HO.MRI 11:06
PROVIDERS: PCP Registered Nurse; Visit Provider Registered Nurse
DX: R92.8 Other abnormal and inconclusive findings on diagnostic imaging of breast (principal)
CPT/HCPCS: 77049; A9585